=== PATIENT | female | born 1960 | race Two or more races ===

== ENCOUNTER 2025-05-04 07:38 | Observation (INO) | payer BC ==
[2025-05-04] VITALS (10 sets, daily range): BP systolic 92–138; BP diastolic 57–91; PULSE 62–73; RESP 15–18; TEMP 98; O2SAT 89–97
[~2025-05-04] VITALS: Ht 160 cm; Wt 90.9 kg
[~2025-05-04 07:38] MED LIST: THYR30TA PO; TRAM50TA2 PO
[2025-05-04] MEDS: VANCOMYCIN HCL 1000 MG VL ONE ×2 (08:23→12:03)
[2025-05-04] MEDS: ACETAMINOPHEN IV 100 ML IV ONE (08:23)
[2025-05-04] MEDS: PREGABALIN CAPSULE 75 MG CAP ONE (08:24)
[2025-05-04] MEDS: ACETAMINOPHEN IV 1000 MG/100ML (10MG/ML) IV ONE (09:00)
[2025-05-04] MEDS ORDERED: KETAMINE 50mg/ML 1ml syringe ONE (09:04)
[2025-05-04] MEDS ORDERED: fentaNYL CITRATE 100 MCG/2 ML VL ONE (09:04)
[2025-05-04] MEDS ORDERED: MIDAZOLAM HCL 2MG/2ML 2ml VIAL (1mg/ml) ONE ×2 (09:04→11:00)
[2025-05-04] MEDS ORDERED: ONDANSETRON HCL 4 MG/2 ML VIAL ONE (09:05)
[2025-05-04] MEDS ORDERED: LIDOCAINE 1% INJ PF 5ML AMP ONE (09:05)
[2025-05-04] MEDS ORDERED: PROPOFOL 10 MG/ML 20 ML IV ONE ×2 (09:05→12:14)
[2025-05-04] MEDS ORDERED: SODIUM CHLORIDE LOCK 10 ML ONE (09:05)
[2025-05-04] MEDS: PREGABALIN CAPSULE 75 MG CAP PO ONE (10:02)
[2025-05-04] MEDS: TETRACAINE 1% INJ 2 ML VIAL IJ ONE (10:10)
[2025-05-04] MEDS ORDERED: MORPHINE SULF PF 5 MG/10 ML VIAL ONE (10:14)
[2025-05-04] MEDS: CEFEPIME 1GM/ 50ML 50 ML IV ONE (10:50)
[2025-05-04] MEDS: VANCOMYCIN 1GM/250ML KIT 250 ML IV ONE (10:51)
[2025-05-04] MEDS: TRANEXAMIC ACID 20 ML ONE (10:56)
[2025-05-04] MEDS ORDERED: MORPHINE SULFATE INJ 2 MG/ml SYRG IV PRN ×2 (11:00→12:45)
[2025-05-04] MEDS ORDERED: NITROGLYCERIN 0.4 MG SL TAB SL PRN (11:00)
[2025-05-04] MEDS: LACTATED RINGER'S 1,000 ML IV SCH (11:00)
[2025-05-04] MEDS: MORPHINE SULF PF 5 MG/10 ML VIAL ONE (12:03)
[2025-05-04] MEDS: BUPIVACAINE 0.25% INJ 50ML VIAL ONE (12:03)
[2025-05-04] MEDS: KETOROLAC TROMETH 30 MG/ML 1ML VIAL ONE (12:03)
--- NOTE | 2025-05-04 12:17 | DVHOP2 ---
Operative Report - 2 Report Details Date: 05/04/25 Preop Diagnosis: Right hip osteoarthritis Postop Diagnosis: Right hip osteoarthritis Surgeon: Jean Paul Luis MD Utility Maintenance Worker: Omar GREY Anesthesiologist: Anesthesia: Regional Consent: The patient was informed of the risks and benefits of the procedure. These include but are not limited to complications of anesthesia, postoperative infection, incomplete relief of symptoms, recurrence of symptoms, damage to blood vessels, nerves and tendons, deep venous thrombosis, pulmonary embolism and possible need for repeat surgery in the future. Estimated Blood Loss: 300 cc Name of Procedure Performed Right total hip arthroplasty using computer navigation Procedure Details Procedure Details: FINDINGS: Extensive degenerative disease with grade IV changes INDICATION: This patient has failed non-operative treatments for hip arthritis and is now indicated for a total hip replacement. Preoperatively in the waiting area as well as in the office, I had a long discussion with the patient regarding the plan, the expected outcome, the risks, benefits, and alternatives of surgery. The risks include, but are not limited to, infection (which may require future surgery and removal of implants) , bleeding (which may require a transfusion), damage to nerves, arteries, veins, tendons, muscles and other adjacent structures. Also discussed the possibilities of dislocation, leg-length discrepancy, intraoperative fractures, implant loosening, heterotopic bone form ation, and revision for variety of reasons, and medical complications etc. This was discussed at length and consent has been obtained. DESCRIPTION OF PROCEDURE: In the preoperative holding area, the consent was reviewed and the appropriate extremity was verified by the patient and marked with my initials. The patient was then transferred to the operating theatre. Appropriate anesthetia was induced. All bony prominences were well padded. A time out was performed verifying the side and site of surgery according to standard protocol. Preoperative antibiotics were given. Tranexamic acid was given. The patient was then placed in the lateral decubitus position and fixed with rigid pelvic fixation. All bony prominences were well padded and an axillary roll was placed. The affected hip area was then prepped and draped in the usual sterile fashion. Using an 11-blade, three stab incisions were made over the iliac crest. Two threaded guide pins were inserted into the crest confirming to be in bone. The pelvic array was attached to the pins and tightened. We made a standard posterolateral incision sharply through the skin and carried our dissection down through subcutaneous tissue to the underlying fascia achieving hemostasis where necessary. We incised the fascia in line with our incision. We identified and protected the sciatic nerve. We took down the external rotators and hip capsule from their insertion into the greater trochanter, tagged them and retracted them posteriorly for further protection of the sciatic nerve. A check point was placed into the greater trochanter and the hip center and leg length length were registered. We then dislocated the femoral head and performed an osteotomy of the femoral neck in accordance with our pre-operative plan. The labrum was excised with a long-handle knife, and we exposed the acetabular rim and cotyloid fossa. We then reamed up to our final size in accordance with the preoperative plan. We copiously irrigated and then impacted the final cup into position. We confirmed the position with the robotic navigation guidance. We placed acetabular dome screws into the posterior-superior quadrant in the usual fashion. We irrigated the cup and impacted the liner, checking to make sure it was well seated. Attention was then turned to the femur. We used a box osteotome followed by a canal finder to gain entry to the canal. Intramedullary contents were suctioned and care was taken to ensure they did not touch the tissues. We sequentially reamed until good cortical contact, then broached up to out final size. We trialed with the appropriate femoral neck and head and reduced the hip. The hip was taken through a full range of motion. The hip soft tissues were examined in extension and external rotation, the anterior capsule and IT band were palpated, and combined anteversion was determined to be 40 degrees. The hip was stable at maximum flexion, at 90 degrees of flexion and 45 degrees of internal rotation and the position of sleep. Leg lengths were restored as shown using the computer navigation, and the trial LTC matched preoperative and intraoperative templating. The hip was then dislocated and trial components removed. We copiously irrigated the wound and impacted the final femoral stem into position. The f emoral head was impacted onto a clean and dry trunion and confirmed to be seated. The hip was reduced ensuring to tissues in the acetabular cup. We again brought it through a full functional range of motion and there was no evidence for dislocation, instability, or impingement. The checkpoint was removed. A dilute betadine solution (17.5mL in 500mL saline) was used to wash the joint and left to sit for 3 minutes. This was then irrigated out with copious amounts of pulse lavage. We sprinkled 1g vancomycin powder below the fascia and 1g above the fascia. We copiously irrigated the wound and soft tissues. The short external rotators and capsule were repaired to the greater trochanter through drill holes, and the quadratus was repaired. We palpated the sciatic nerve in continuity without tension. The fascia was closed with vicryl and a barbed suture. We closed over the fascia with vicryl suture and re-approximated the skin with mary. A sterile dressing was placed. We returned the patient to the supine position. We verified all lower extremity compartments were soft and compressible and that we had intact distal pulses and checked our leg length lutheran. The patient was then transferred to the recovery room in stable condition. Condition Good Disposition Still a Patient JEAN PAUL LUIS MD May 04, 2025 12:17
[2025-05-04] MEDS ORDERED: diphenhdrAMINE HCL 50 MG/1 ML VL IV PRN (12:45)
[2025-05-04] MEDS ORDERED: NALOXONE HCL 0.4 MG/ML VIAL IV PRN (12:45)
[2025-05-04] MEDS: METOCLOPRAMIDE HCL 5MG/ml INJ 2ml VIAL IV ONE (12:45)
[2025-05-04] MEDS ORDERED: MORPHINE SULFATE 4 MG/ML SYR/VIAL IV PRN (12:45)
[2025-05-04] MEDS ORDERED: HYDROmorphone HCL 2 MG/ML VL/or syr IV PRN ×2 (12:45)
[2025-05-04] MEDS: KETOROLAC TROMETH 30 MG/ML 1ML VIAL IV ONE (12:45)
[2025-05-04] MEDS: ceFAZolin 2 GM/D5W50ml 50 ML IV SCH (13:04)
[2025-05-04] MEDS: SODIUM CHLOR 0.9% PF (SALINE LOCK) 10ML VIAL/SYR IV SCH (14:00)
--- NOTE | 2025-05-04 14:00 | DVH ---
CLINICAL INDICATION: sp JUANCHO TECHNIQUE: 1 radiographic views of the pelvis were obtained. Comparison: None FINDINGS/IMPRESSION: Total hip replacement on the right. Gas noted in the hip joint around the neck of the prosthesis and prosthetic head as well as in the [place] rrounding soft tissues. Findings worrisome for infection
[2025-05-04] MEDS: DOCUSATE SOD 100 MG CAP PO SCH (21:48)
[2025-05-05] VITALS (19 sets, daily range): BP systolic 108–150; BP diastolic 59–97; PULSE 64–103; RESP 16–18; TEMP 97.5–98.4; O2SAT 94–100
[2025-05-05] MEDS: THYROID 60 MG TAB PO SCH (06:20)
[2025-05-05 07:05] LABS: Hematocrit 35.9 % (36.0-46.0); Hemoglobin 12.6 g/dL (12.2-16.2)
[2025-05-05 07:23] LABS: Alanine Aminotransferase 21 U/L (7-40); Alkaline Phosphatase 52 U/L (46-116); Anion Gap 6 (5-15); BUN/Creatinine Ratio 11.5 (10.0-20.0); Calcium 8.9 mg/dL (8.7-10.4); Carbon Dioxide 29 mmol/L (20-31); Glucose 99 mg/dL (74-106); Potassium 3.8 mmol/L (3.5-5.1); Sodium 143 mmol/L (136-145)
[2025-05-05 07:24] LABS: Albumin 3.8 g/dL (3.2-4.8); Bilirubin, Total 0.7 mg/dL (0.2-1.0)
[2025-05-05 07:25] LABS: Blood Urea Nitrogen 7 mg/dL (9-23); Chloride 108 mmol/L (98-107); Total Protein 5.3 g/dL (5.7-8.2)
--- NOTE | 2025-05-05 08:04 | DVHPN2 ---
Progress Note Date Seen: May 05, 2025 Medical Necessity Reason Pt with a Central, PICC or Fol: No Subjective Patient reports: Feels worse (patient having issues with urination and has not been able to ambulate with PT) Objective vital signs Vital Sign Date Time Temp Pulse Resp B/P (MAP) Pulse Ox O2 Delivery O2 Flow Rate FiO2 05/05/25 06:57 68 18 96 05/05/25 04:28 98.1 111/77 (88) 98.1 05/04/25 20:00 Room Air* 0 21 Total Intake and Output 05/04/25 05/04/25 05/05/25 15:00 23:00 07:00 Intake Total 670 ml 200 ml 375 ml Balance 670 ml 200 ml 375 ml medications Current Medications Medications Dose Ordered Sig/Ernie Route Start Time Stop Time Status Last Admin Dose Admin Thyroid 30 mg QAM PO 05/05/25 07:00 Cefepime HCl 50 ml @ 12.5 mls/hr DAILY IV 05/05/25 10:00 Sodium Chloride 10 ml Q8HR IV 05/04/25 14:00 05/05/25 06:20 10 ML Oxycodone/ Acetaminophen 1 tab Q4HP PRN PO 05/04/25 11:00 Hydromorphone HCl 1 mg Q2HP PRN IV 05/04/25 11:00 Ondansetron HCl 4 mg Q6HP PRN IV 05/04/25 11:00 Docusate Sodium 100 mg Q12HR PO 05/04/25 22:00 05/04/25 21:48 100 MG Enoxaparin Sodium 40 mg DAILY SC 05/05/25 10:00 Nitroglycerin 0.4 mg Q5MINP PRN SL 05/04/25 11:00 Morphine Sulfate 2 mg Q30M PRN IV 05/04/25 11:00 Diphenhydramine HCl 25 mg Q4HP PRN IV 05/04/25 12:45 Examination: GENERAL:Normal, MSK:Abnormal laboratory and microbiology Laboratory Tests 05/05/25 06:11 Test 05/05/25 06:11 Range/Units Serum Glucose 99 74-106 mg/dL Problem List/Assessment/Plan Problem List/Assessment/Plan 64 year old female who is s/p Right JUANCHO POD 1 1. Pain control 2. WBAT 3. DVT ppx 4. Physical therapy 5. d/c planning for home tomorrow as patient has been having issues with urination and has not been able to ambulate with PT therefore poses safety concerns for discharge today Plan discussed with: Patient Date of Service: May 05, 2025 Billing Provider: LORNA RAMIREZ MD Common Visit Codes: NOT BILLABLE ZAID ESTRADA NP May 05, 2025 08:04
[2025-05-05] MEDS: ENOXAPARIN SOD 40 MG/0.4 ML SYRINGE SC SCH (09:30)
[2025-05-05] MEDS: CEFEPIME 1GM/ 50ML 50 ML IV SCH (09:35)
[2025-05-05] MEDS: HYDROmorphone HCL 2 MG/ML VL/or syr IV PRN (09:35)
--- NOTE | 2025-05-05 11:16 | DVHINCON2 ---
Date Seen: May 05, [address] Luis Family History: FH: breast cancer G8 MOTHER Allergies: Coded Allergies: Penicillins (Unverified Allergy, Unknown, rash , 04/30/25) Aspirin (Unverified Adverse Reaction, Unknown, gastric sleeve , 04/30/25) NSAIDs (Unverified Adverse Reaction, Unknown, gastric sleeve , 04/30/25) Uncoded Allergies: NG Tube (Adverse Reaction, Unknown, no blind NG tube placement, gastric sleeve in place , 04/30/25) Home Meds Reported Medications Thyroid ([place] Thyroid) 30 Mg Tab, 1 TAB PO DAILY, #90 TAB 3 Refills 04/30/25 Tramadol Hcl (Tramadol Hcl) 50 Mg Tab, 50 MG PO, TAB 04/30/25 Current Medications Current Medications Medications (Trade) Dose Ordered Sig/Ernie Route PRN Reason Start Time Stop Time Status Last Admin Thyroid ([place] Thyroid) 30 mg QAM PO 05/05/25 07:00 Cefepime HCl 50 ml @ 12.5 mls/hr DAILY IV 05/05/25 10:00 05/05/25 09:35 Sodium Chloride ([place] N[place]) 10 ml Q8HR IV 05/04/25 14:00 05/05/25 06:20 Docusate Sodium (Colace Capsule) 100 mg Q12HR PO 05/04/25 22:00 05/05/25 09:29 Enoxaparin Sodium (Lovenox) 40 mg DAILY SC 05/05/25 10:00 05/05/25 09:30 Cefazolin Sodium/ Dextrose 50 ml @ 50 mls/hr Q8HR IV 05/04/25 14:00 05/05/25 06:59 DC 05/05/25 06:21 Hydromorphone HCl (Dilaudid Injection) 0.5 mg Q10M PRN IV SEVERE PAIN (7-10 PAIN SCALE) 05/04/25 12:45 05/04/25 13:26 DC Morphine Sulfate 2 mg Q4H PRN IV BREAKTHRU PAIN SCALE 7-10 05/04/25 12:45 05/04/25 16:46 DC Hydromorphone HCl (Dilaudid Injection) 0.25 mg Q10M PRN IV MODERATE PAIN (4-6 PAIN SCALE) 05/04/25 12:45 05/04/25 13:16 DC Morphine Sulfate 1 mg Q30M PRN IV SEVERE PAIN (7-10 PAIN SCALE) 05/04/25 12:45 05/04/25 14:46 DC Diphenhydramine HCl (Benadryl Injection) 25 mg Q4HP PRN IV FOR ITCHING 05/04/25 12:45 Naloxone HCl (Narcan) 0.2 mg Q5M PRN IV For respirations < than 10/min 05/04/25 12:45 05/04/25 12:53 DC Vital Signs Vital Signs Date Time Temp Pulse Resp B/P (MAP) Pulse Ox O2 Delivery O2 Flow Rate FiO2 05/05/25 09:35 66 18 137/88 05/05/25 09:00 98.4 96 98.4 05/04/25 20:00 Room Air* 0 21 Labs/Diagnostic Data Labs Test 05/05/25 06:11 Range/Units Hemoglobin 12.6 12.2-16.2 g/dL Hematocrit 35.9 L 36.0-46.0 % Sodium Level 143 136-145 mmol/L Potassium Level 3.8 3.5-5.1 mmol/L Chloride Level 108 H 98-107 mmol/L Carbon Dioxide Level 29 20-31 mmol/L Anion Gap 6 5-15 Blood Urea Nitrogen 7 L 9-23 mg/dL Creatinine 0.61 0.550-1.02 mg/dL Glomerular Filtration Rate Calc 100 >90 mL/min BUN/Creatinine Ratio 11.5 10.0-20.0 Serum Glucose 99 74-106 mg/dL Calcium Level 8.9 8.7-10.4 mg/dL Total Bilirubin 0.7 0.2-1.0 mg/dL Aspartate Amino Transferase (AST) 21 13-40 U/L Alanine Aminotransferase (ALT) 21 7-40 U/L Alkaline Phosphatase 52 46-116 U/L Total Protein 5.3 L 5.7-8.2 g/dL Albumin 3.8 3.2-4.8 g/dL Assessment see dictated note Plan discussed with: Patient Date of Service: May 05, 2025 Billing Provider: STEPHENIE GARCIA MD Common Visit Codes: [id number] INP/OBS CARE (HIGH) STEPHENIE GARCIA MD May 05, 2025 11:16
--- NOTE | 2025-05-05 13:01 | DVHINCON2 ---
INTERNAL MEDICINE CONSULT HISTORY OF PRESENT ILLNESS: The patient is a 64-year-old lady who was admitted after she underwent surgery on the right hip for DJD of the hip. The patient at this time complains of pain. She was also dizzy when she got up to do physical therapy. No history of chest pain. No shortness of breath. No nausea or vomiting. REVIEW OF SYSTEMS: Review of rest of systems are otherwise currently negative. PAST MEDICAL HISTORY: Significant for hypothyroidism. MEDICATIONS: She takes [place] Thyroid. ALLERGIES: ASPIRIN, NONSTEROIDALS AND PENICILLIN. SOCIAL HISTORY: Denies smoking or alcohol. Lives at home with her . FAMILY HISTORY: Negative. PHYSICAL EXAMINATION: GENERAL: The patient is awake and alert. VITAL SIGNS: Temperature of 98.4, pulse 66 per minute, blood pressure 137/88. SHEENT: Unremarkable. NECK: There is no JVD. LUNGS: Equal bilaterally. No added sounds. CARDIOVASCULAR: S1 and S2 is regular. No murmurs. ABDOMEN: Soft. There is no organomegaly. EXTREMITIES: No pedal edema. NEUROLOGIC: Nonfocal. MUSCULOSKELETAL: There is a dressing at the site of right hip surgery. ASSESSMENT AND PLAN: * Hypothyroidism, for which the patient's TSH will be checked. * Obesity. * Status post dizziness/near syncope, for which the patient will be given a bolus of IV fluids. * Status post right hip surgery, for which she will receive physical therapy and pain medications. MD JENNIFFER Shannon/KYLAH TID: [id number] RECEIPT: [id number]
[2025-05-05] MEDS: OXYCODONE W/ ACETAMINOPHEN 5/325MG TABLET PO PRN (14:29)
[2025-05-05] MEDS: SODIUM CHLORIDE 0.9% 250 ML IV ONE (14:31)
[2025-05-06 01:00] VITALS: BP 131/81; PULSE 66; RESP 17; TEMP 97.7; O2SAT 96
[2025-05-06] MEDS: HYDROmorphone HCL 2 MG/ML VL/or syr IV PRN (04:09)
[2025-05-06] MEDS: ONDANSETRON HCL 4 MG/2 ML VIAL IV PRN (04:09)
[2025-05-06 05:00] VITALS: BP 126/79; PULSE 64; RESP 19; TEMP 98; O2SAT 96
[2025-05-06 08:00] VITALS: PULSE 69; PULSE 71; RESP 18; O2SAT 99
--- NOTE | 2025-05-06 08:09 | DVHPN2 ---
Progress Note Date Seen: May 06, 2025 Medical Necessity Reason Pt with a Central, PICC or Fol: No Objective vital signs Vital Sign Date Time Temp Pulse Resp B/P (MAP) Pulse Ox O2 Delivery O2 Flow Rate FiO2 05/06/25 05:00 98.0 64 19 126/79 (95) 96 98.0 05/05/25 20:00 Room Air* 0 21 Total Intake and Output 05/05/25 05/05/25 05/06/25 15:00 23:00 07:00 Intake Total 730 ml 1330 ml 800 ml Balance 730 ml 1330 ml 800 ml medications Current Medications Medications Dose Ordered Sig/Ernie Route Start Time Stop Time Status Last Admin Dose Admin Thyroid 30 mg QAM PO 05/05/25 07:00 Cefepime HCl 50 ml @ 12.5 mls/hr DAILY IV 05/05/25 10:00 05/05/25 09:35 12.5 MLS/HR Sodium Chloride 10 ml Q8HR IV 05/04/25 14:00 05/06/25 06:11 10 ML Oxycodone/ Acetaminophen 1 tab Q4HP PRN PO 05/04/25 11:00 05/05/25 23:49 1 TAB Ondansetron HCl 4 mg Q6HP PRN IV 05/04/25 11:00 05/06/25 04:09 4 MG Docusate Sodium 100 mg Q12HR PO 05/04/25 22:00 05/05/25 09:29 100 MG Enoxaparin Sodium 40 mg DAILY SC 05/05/25 10:00 05/05/25 09:30 40 MG Nitroglycerin 0.4 mg Q5MINP PRN SL 05/04/25 11:00 Morphine Sulfate 2 mg Q30M PRN IV 05/04/25 11:00 Diphenhydramine HCl 25 mg Q4HP PRN IV 05/04/25 12:45 Hydromorphone HCl 1 mg Q3HP PRN IV 05/05/25 11:15 05/06/25 04:09 1 MG Examination: GENERAL:Normal, MSK:Abnormal laboratory and microbiology Laboratory Tests 05/05/25 06:11 Test 05/05/25 06:11 Range/Units Serum Glucose 99 74-106 mg/dL Problem List/Assessment/Plan Problem List/Assessment/Plan 64 year old female who is s/p Right JUANCHO POD 2 1. Pain control 2. WBAT 3. DVT ppx 4. Physical therapy-patient has order for outpatient PT 5. Patient has prescriptions for percocet, lovenox and colace at home as prescribed prior to surgery 6. follow up on 05/20/2025 at 9:00 7. clear for discharge from orthopedic standpoint with the following discharge recommendations: POSTOPERATIVE Posterior Total Hip INSTRUCTIONS Activity: 1. You can bear as much weight as you tolerate on your hip unless specifically instructed otherwise. You may use the walking aid which you were discharged with and switch to a cane whenever you feel comfortable doing so. You should use an assistive device until you can walk comfortably without it. Keep in mind that every patient moves at their own speed of recovery so take your time. 2. A physical therapist will visit you at home. 3. Although guarantees against a dislocation do not exist, the hip was noted to be sufficiently stable in surgery. Below are motions that you should dischargenot do for 4-6 weeks, depending on the surgical approach used. If there are questions, please call the office. a. Bend forward past 90 degrees b. Sit on a regular low chair, couch, car seat etc... c. Cross your legs d. Use a regular low toilet seat. e. Sleep on your stomach or on either side. 3. High impact activity such as jumping, aerobics, tennis, and skiing are not permitted during the first 3 months after surgery. These activities can contribute to accelerated wear and should be done with caution after this time. Discuss this with your surgeon if you have questions. 4. Although a bath or whirlpool is NOT permitted during the first 2-3 weeks, you may shower as soon as you get home from the hospital provided you are able to keep your bandage clean and dry and there is no wound drainage. If you are unable to place a secured covering over your bandage bed bath/sponge bath may likely be the more appropriate option. 5. Swimming is not permitted until the wound is healed, which typically occurs approximately 3-4 weeks after surgery. Wound Management: If the wound is draining please change the gauze pad on the wound until it stops. If drainage persists past 10 days please notify our office. If there is a sticky gel dressing over your wound, you may leave this in place for as long as it is clean and dry. If it becomes loose or causes skin irritation, it is OK to remove it and place clean gauze over your wound. 1. You might notice some bruising around the surgical site, this is normal. 2. Check your temperature on a daily basis. Please note that a low-grade temp below 101 is not uncommon after surgery especially during the first 3 days. Notify the office if your temperature spikes above 101.5 after the 3rd post- operative date. 3. Many patients experience significant swelling in the thigh, this may extend below the knee and sometimes to the ankle. Swelling increases during the first week and subsides during the following week. 4. Provided you have been on a blood thinner since surgery and have been up and about at least three times per day, the risk of a blood clot is low and this swelling is an expected part of recovery. It will largely or completely resolve by your first post-operative visit. 5. [place], if present, will be removed at 2 weeks during initial post-op visit. Medications: 1. You will be discharged with pain medication, Aspirin as a blood thinner and sometimes an anti-inflammatory medication such as Celebrex or Mobic might be prescribed. Please follow the instructions regarding these medicines as provided by your nurse at the hospital. 2. Narcotic pain medication has side effects, including constipation. Please ensure you continue to take stool softeners (Colace, Senna) while taking your pain medication to help protect against constipation. Getting up and moving around at least a few times per day helps with this also. 3. Lovenox 40 Sq x 12 days followed by one regular strength 325 mg coated aspirin daily for 4 weeks after surgery. Then, take one baby aspirin, 81 mg daily for 6 weeks more. A major, yet preventable, complication of Orthopaedic Surgery is a blood clot (DVT). It is important not to miss any doses of this important medication. 4. You should restart all of your prescription medications once discharged unless specifically instructed otherwise. 5. Herbal supplements may be restarted 2 weeks after surgery. Miscellaneous issues: 1. Driving is not permitted within the first 2 weeks. 2. Your first postoperative visit will take place 2weeks after discharge. Please call the office to arrange this appointment. 3. Antibiotic preventative treatment is required before dental or other invasive procedures. Please ask your surgeon about this at your first postoperative visit. Your hip replacement contains metal which may activate metal detectors. You may wish to carry a letter from your surgeon to communicate this to security personnel. If you experience chest pain, shortness of breath or severe painful calf swelling, go to the nearest emergency room to be evaluated. Please call our office once your situation is stabilized. Plan discussed with: Patient Date of Service: May 06, 2025 Billing Provider: LORNA RAMIREZ MD Common Visit Codes: NOT BILLABLE ZAID ESTRADA NP May 06, 2025 08:09
[2025-05-06 08:51] LABS: Hematocrit 33.5 % (36.0-46.0); Hemoglobin 11.7 g/dL (12.2-16.2); Mean Corpuscular Hemoglobin 33.7 pg (28.0-32.0); Mean Corpuscular Volume 96.3 fL (80.0-100.0); Nucleated Red Blood Cells % 0.0 %
[2025-05-06 09:08] LABS: Alanine Aminotransferase 21 U/L (7-40); Albumin 3.7 g/dL (3.2-4.8); Alkaline Phosphatase 49 U/L (46-116); Anion Gap 7 (5-15); BUN/Creatinine Ratio 15.5 (10.0-20.0); Blood Urea Nitrogen 9 mg/dL (9-23); Carbon Dioxide 30 mmol/L (20-31); Chloride 107 mmol/L (98-107); Glucose 93 mg/dL (74-106); Potassium 3.6 mmol/L (3.5-5.1); Sodium 144 mmol/L (136-145)
[2025-05-06 09:09] LABS: Bilirubin, Total 0.5 mg/dL (0.2-1.0)
[2025-05-06 09:11] LABS: Calcium 8.6 mg/dL (8.7-10.4); Total Protein 5.2 g/dL (5.7-8.2)
[2025-05-06 09:38] VITALS: BP 141/77; PULSE 71; RESP 16; TEMP 98.3; O2SAT 96
--- NOTE | 2025-05-06 12:27 | DVHDS2 ---
Discharge Summary Date of Admission May 04, 2025 at 10:51 Date of Discharge: May 06, 2025 Labs/Diagnostic Data: Laboratory Results Test 05/06/25 07:45 White Blood Count 3.9 10^3/uL (4.4-10.8) Red Blood Count 3.48 10^6/uL (4.0-5.20) Hemoglobin 11.7 g/dL (12.2-16.2) Hematocrit 33.5 % (36.0-46.0) Mean Corpuscular Volume 96.3 fL (80.0-100.0) Mean Corpuscular Hemoglobin 33.7 pg (28.0-32.0) Mean Corpuscular Hemoglobin Concent 35.0 g/dL (32.0-36.0) Red Cell Distribution Width 11.9 % (11.8-14.3) Platelet Count 160 10^3/uL (140-450) Mean Platelet Volume 8.4 fL (6.9-10.8) Neutrophils (%) (Auto) 48.8 % (37.0-80.0) Lymphocytes (%) (Auto) 35.9 % (10.0-50.0) Monocytes (%) (Auto) 8.8 % (0.0-12.0) Eosinophils (%) (Auto) 5.3 % (0.0-7.0) Basophils (%) (Auto) 1.2 % (0.0-2.0) Neutrophils # (Auto) 1.9 10 ^3/uL (1.6-8.6) Lymphocytes # (Auto) 1.4 10 ^3/uL (0.4-5.4) Monocytes # (Auto) 0.3 10 ^3/uL (0-1.3) Eosinophils # (Auto) 0.2 10 ^3/uL (0-0.8) Basophils # (Auto) 0 10 ^3/uL (0-0.2) Nucleated Red Blood Cells 0.0 % Sodium Level 144 mmol/L (136-145) Potassium Level 3.6 mmol/L (3.5-5.1) Chloride Level 107 mmol/L (98-107) Carbon Dioxide Level 30 mmol/L (20-31) Anion Gap 7 (5-15) Blood Urea Nitrogen 9 mg/dL (9-23) Creatinine 0.58 mg/dL (0.550-1.02) Glomerular Filtration Rate Calc 102 mL/min (>90) BUN/Creatinine Ratio 15.5 (10.0-20.0) Serum Glucose 93 mg/dL (74-106) Calcium Level 8.6 mg/dL (8.7-10.4) Total Bilirubin 0.5 mg/dL (0.2-1.0) Aspartate Amino Transferase (AST) 23 U/L (13-40) Alanine Aminotransferase (ALT) 21 U/L (7-40) Alkaline Phosphatase 49 U/L (46-116) Total Protein 5.2 g/dL (5.7-8.2) Albumin 3.7 g/dL (3.2-4.8) Thyroid Stimulating Hormone (TSH) 11.72 uIU/mL (0.55-4.78) Other Laboratory Tests 05/06/25 07:45 Brief Hx & Hospital Course: SEE DICTATED NOTE Condition at Discharge: Good Final Diagnosis/Problems List Right hip osteoarthritis Discharge Disposition: Home Discharge Instruct/Medications Diet: Regular Activity: No Restrictions, As Tolerated Follow Up/Referral: FU WITH PCP/ORTHO Medications: RESUME HOME MEDS REST MEDS PER ORTHO Scheduled Thyroid ([place] Thyroid), 1 TAB PO DAILY, (Reported) Miscellaneous Medications Tramadol Hcl (Tramadol Hcl), 50 MG PO, (Reported) Discharge Statement: "Patient was advised to return to the ER or call 911 if any headaches, dizziness, shortness of breath, chest pain, abdominal pain, bleeding, fevers, or worsening of medical condition. Patient was counseled about treatment plan, medications, possible side effects, patientverbalized understanding. All questions were answered to the best of my ability. This discharge took greater then 30 minutes in planning, reviewing documentation, counseling the patient, and discussing with other team members." ASSESSMENT ASSESSMENT Assessment Right hip osteoarthritis Date of Service: May 06, 2025 Billing Provider: STEPHENIE GARCIA MD Common Visit Codes: [id number] DISCH DAY >30min STEPHENIE GARCIA MD May 06, 2025 12:27
[2025-05-06 12:33] VITALS: BP 127/65; PULSE 75; RESP 18; TEMP 98.3; O2SAT 93
--- NOTE | 2025-05-06 12:42 | DVHDS ---
DATE OF DISCHARGE: 05/06/2025 HISTORY OF PRESENT ILLNESS: The patient is a 64-year-old lady who is admitted after she underwent surgery on the right hip for DJD of the hip. The patient has previous history of hypothyroidism. HOSPITAL COURSE: The patient did well postoperatively. Her hemoglobin is 11.7 at the time of discharge. Her TSH was 11.72. The patient will be discharged to resume her home medications and recheck her TSH as an outpatient. She will follow up with her primary and Orthopedics. FINAL DIAGNOSES: * Hypothyroidism. * Obesity. * Status post right hip surgery for DJD of the hip. Time spent in discharge planning and review of plan with the patient and nursing was 38 minutes. MD JENNIFFER Shannon/ERIC TID: [id number] RECEIPT: [id number]
[2025-05-06 14:05] VITALS: BP 127/65; PULSE 75; RESP 18; TEMP 98.3; O2SAT 93
== END 2025-05-06 14:42 | disposition home or self-care (01) ==
LOC: SUR 07:38 → OVERFLOW 10:51 → TELE-WESTW 18:26
PROVIDERS: ADMIT Internal Medicine; ATTEND Internal Medicine
DX: M16.11 Unilateral primary osteoarthritis, right hip (principal); E66.9 Obesity, unspecified; E03.9 Hypothyroidism, unspecified; I10 Essential (primary) hypertension; Z68.35 Body mass index [BMI] 35.0-35.9, adult; Z98.890 Other specified postprocedural states; Z79.899 Other long term (current) drug therapy
CPT/HCPCS: 27130; 36415; 72170; 80053; 84443; 85014; 85018; 85025; 86850; 86900; 86901; 96365; 96366; 96367; 96372; 96375; 96376; 97110; 97116; 97163; 97530; G0378; J0690; J0692; J1171; J1650; J1885; J2250; J2270; J2405; J2704; J3010; J3373; J7030; J7050; J0131; J3490